=== PATIENT | male | born 1970 | race Caucasian/White ===

== ENCOUNTER 2022-01-29 15:20 | Emergency (ER) | payer SELFPAY ==
[~2022-01-29] VITALS: Ht 180.3 cm; Wt 86.2 kg
[2022-01-29 15:40] VITALS: BP 128/73
[2022-01-29] MEDS ORDERED: LIDOCAINE 1%-EPI 1:100,000 20 ML VIAL TP ONE (17:00)
[2022-01-29] MEDS ORDERED: BACI/NEOM/POLY B OINT PKT 1 UDPKT PACKET TP ONE (18:00)
== END 2022-01-29 17:59 | disposition home or self-care (01) ==
LOC: ER 15:22
DX: S60.450A Superficial foreign body of right index finger, initial encounter (principal); S61.210A Laceration without foreign body of right index finger without damage to nail, initial encounter; Z98.890 Other specified postprocedural states; Z88.6 Allergy status to analgesic agent; Z88.1 Allergy status to other antibiotic agents; W45.8XXA Other foreign body or object entering through skin, initial encounter; Y93.89 Activity, other specified; Y92.89 Other specified places as the place of occurrence of the external cause; Y99.8 Other external cause status
CPT/HCPCS: 73120-TC

== ENCOUNTER 2022-03-14 11:39 | Emergency (ER) | payer OTHER ==
[~2022-03-14] VITALS: Ht 180.3 cm; Wt 86.2 kg
[2022-03-14 11:50] VITALS: BP 121/87
--- NOTE | 2022-03-14 13:42 | NUR ---
SEEN AND EVALUATED BY DR ROJAS, PROVIDED W. XRAY COPY. PT DID NOT SIGN D/C PAPER
== END 2022-03-14 13:45 | disposition home or self-care (01) ==
LOC: ER 11:52
DX: M79.644 Pain in right finger(s) (principal); Z88.1 Allergy status to other antibiotic agents; Z88.5 Allergy status to narcotic agent; Z88.6 Allergy status to analgesic agent
CPT/HCPCS: 73140-TC